=== PATIENT | male | born 1965 | race Caucasian/White ===

== ENCOUNTER → 2019-12-18 | Outpatient (CLI) | payer OTHER ==
[~2019-12-18] MED LIST: IODINE/POTASS IOD (LUGOLS) BOTTLE TOPICAL ONE
--- NOTE | 2019-12-19 08:59 | NM ---
EXAMINATION TYPE: NM DatScan Brain SPECT DATE OF EXAM: 12/18/2019 COMPARISON: NONE HISTORY: 53-year-old male G25.0, tremors TECHNIQUE: 10 drops of Lugol's solution was administered 1 hour prior to injection as a thyroid bloc leslee agent. After the administration of 4.46 mCi I-123 Ioflupane DaTscan. Images obtained 3 hours p ost injection. SPECT images of the brain were acquired with axial and coronal reconstructions. FINDINGS: There is normal background activity. Normal uptake within the bilateral corpus striatum. IMPRESSION: This normal appearance is against a diagnosis of idiopathic Parkinson's disease or a Parkinsonian syn drome. This can be seen in healthy individuals and also patients with essential tremor, drug-induced parkinsonism, and vascular psuedo-parkinsonism.
== END | disposition home or self-care (01) ==
LOC: RADNMMAIN 11:31
PROVIDERS: ATTEND Psychiatry & Neurology Neurology
DX: G25.0 Essential tremor (principal); G20 Parkinson's disease
CPT/HCPCS: 78803; A9584